=== PATIENT | female | born 1980 ===

== ENCOUNTER 2020-11-14 17:31 | Emergency (ER) | payer OTHER ==
[~2020-11-14] VITALS: Ht 167.6 cm; Wt 63.5 kg
[2020-11-14 18:51] VITALS: BP 152/95
[2020-11-14 18:56] LABS: Alcohol, Urine < 3.0 mg/dL (0-10); Amphetamine Screen, Urine POSITIVE (NEGATIVE); Barbiturate Scree,Urine NEGATIVE (NEGATIVE); Benzodiazephine Screen, Urine NEGATIVE (NEGATIVE); Cannabinoid Screen, Urine NEGATIVE (NEGATIVE); Cocaine Screen, Urine NEGATIVE (NEGATIVE); Opiate Scree,Urine NEGATIVE (NEGATIVE); Phencyclidine Screen, Urine NEGATIVE (NEGATIVE)
[2020-11-14] MEDS ORDERED: SODIUM CHLORIDE 0.9% 1,000 ML IV ONE (21:00)
[2020-11-14] MEDS ORDERED: CLINDAMYCIN 600MG IV 50 ML IV ONE (21:00)
[2020-11-14] MEDS ORDERED: KETOROLAC TROMETH 30 MG/ML 1ML VIAL IV ONE (21:00)
== END 2020-11-15 00:27 | disposition home or self-care (01) ==
LOC: ER 17:31
DX: E86.0 Dehydration (principal); R51.9 Headache, unspecified; K08.89 Other specified disorders of teeth and supporting structures; F15.10 Other stimulant abuse, uncomplicated
CPT/HCPCS: 70450; 80307; 93005; 99285; J1885; J3490